=== PATIENT | female | born 1995 | race Caucasian/White ===

== ENCOUNTER 2016-11-11 08:24 | Emergency (ER) | payer OTHER ==
[2016-11-11 09:16] VITALS: BP 123/66; PULSE 77; RESP 14; TEMP 97.9; O2SAT 98
--- NOTE | 2016-11-11 09:20 | UCPHY ---
H & P Time Seen by Provider: 11/11/16 09:12 Patient Type: Established HPI/ROS: This patient reports a sore throat that started last week. The symptoms have increased over the past 24 hours and she reports peak intensity 8/10 achy discomfort in her throat. She has associated odynophagia. She has minimal relief from deax-dfc-adxifmn medications and she wants to rule out strep. She still tolerating p.o. intake. ROS: No high fevers or chills. HEENT: No significant nasal congestion facial pain. She has mild ear discomfort right side. Pulmonary: No cough GI: No vomiting integumentary: No rash. 7 point ROS is otherwise negative. Past Medical/Surgical History: Otherwise healthy Smoking Status: Never smoked Physical Exam: Physical Exam Vital signs are normal. General: No acute distress HEENT: Nose: Clear oropharynx: Mild tonsillar erythema with no exudates. There is minimal swelling. No dysphonia. Ears: External canals and TMs clear bilaterally. Eyes: Pupils equal and react to light. Extraocular motions are intact. Lungs: Clear to auscultation bilaterally. No respiratory distress. Cardiac: Regular rate and rhythm with no murmur gallop or rub Skin: No rash or pallor. Neuro: Alert and oriented x3 with no sensorimotor deficits. Initial differential diagnosis: Viral pharyngitis versus strep pharyngitis Constitutional: Initial Vital Signs Temperature (C) 36.6 C 11/11/16 09:14 Heart Rate 77 11/11/16 09:14 Respiratory Rate 14 11/11/16 09:14 Blood Pressure 123/66 H 11/11/16 09:14 O2 Sat (%) 98 11/11/16 09:14 O2 Delivery Mode Room Air Allergies/Adverse Reactions: acetaminophen [From Vicodin] Allergy (Verified 11/12/16 09:38) hydrocodone bitartrate [From Vicodin] Allergy (Verified 11/12/16 09:38) Home Medications: Medication Instructions Recorded oxyCODONE/APAP 5/325 [Percocet 1 tab PO Q4-6PRN PRN #15 tab 11/12/16 5/325 (RX)] Medical Decision Making ED Course/Re-evaluation: Rapid strep is negative. I counseled the patient regarding viral pharyngitis. Departure - Departure Disposition: Home, Routine, Self-Care Clinical Impression: Viral pharyngitis Instructions: Pharyngitis (ED) Additional Instructions: Diagnosis: Viral pharyngitis Your rapid strep today is negative. Plan: Humidifier Ibuprofen for discomfort as [id number] mg per 6 hours. ex solution in addition as prescribed if needed for throat pain Her symptoms should improve over the next 3-5 days. Return for any significant worsening despite treatment plan [place]errals: [place],. [Primary Care Provider] - As per Instructions Stand Alone Forms: School Excuse - PQRS PQRS Measurement: NA
== END 2016-11-11 09:24 | disposition home or self-care (01) ==
LOC: CED 08:24
DX: J02.9 Acute pharyngitis, unspecified (principal); Z88.6 Allergy status to analgesic agent
CPT/HCPCS: 87880-PO; 99214-PO; G0463-PO

== ENCOUNTER 2016-11-12 09:26 | Emergency (ER) | payer OTHER ==
[2016-11-12 09:38] VITALS: BP 112/79; PULSE 96; RESP 16; TEMP 99; O2SAT 98
--- NOTE | 2016-11-12 09:49 | UCPHY ---
H & P Time Seen by Provider: 11/12/16 09:45 Patient Type: Established HPI/ROS: This patient presents with a chief complaint of a sore throat which began last week but became much worse 2 days ago. She was seen here yesterday and diagnosed with a viral pharyngitis and both the strep screen and DNA testing was negative for strep. She has some soreness in the right side of her neck and experienced some chills last night but does not think she has had a fever. She denies ear pain, nasal congestion cough. She does feel slightly fatigued. She says the throat pain has become worse since she was seen here yesterday. Smoking Status: Never smoked Physical Exam: GENERAL: Well-appearing, well-nourished and in no acute distress. HEAD: Atraumatic, normocephalic. EYES: sclera anicteric, conjunctiva are normal. ENT: TMs normal, nares patent, oropharynx clear without exudates. Moist mucous membranes. The tonsils are fairly large but there is no significant injection and there is no exudate. NECK: Normal range of motion, supple without lymphadenopathy or JVD. There is some tenderness in the upper right neck. LUNGS: Breath sounds clear to auscultation bilaterally and equal. No wheezes rales or rhonchi. HEART: Regular rate and rhythm EXTREMITIES: Normal range of motion, NEUROLOGICAL: Cranial nerves II through XII grossly intact. Normal speech, normal gait. PSYCH: Normal mood, normal affect. SKIN: Warm, dry, normal turgor, no visible rashes or lesions. Constitutional: Initial Vital Signs Temperature (C) 37.2 C 11/12/16 09:36 Heart Rate 96 11/12/16 09:36 Respiratory Rate 16 11/12/16 09:36 Blood Pressure 112/79 11/12/16 09:36 O2 Sat (%) 98 11/12/16 09:36 O2 Delivery Mode Room Air Allergies/Adverse Reactions: acetaminophen [From Vicodin] Allergy (Verified 11/12/16 09:38) hydrocodone bitartrate [From Vicodin] Allergy (Verified 11/12/16 09:38) Home Medications: Medication Instructions Recorded oxyCODONE/APAP 5/325 [Percocet 1 tab PO Q4-6PRN PRN #15 tab 11/12/16 5/325 (RX)] Medical Decision Making Differential Diagnosis: This patient wanted to receive antibiotics however I declined given the objective findings as well as the negative strep testing. I find nothing else that would indicate that antibiotics would be beneficial. Departure - Departure Clinical Impression: Pharyngitis Qualifiers: Pharyngitis/tonsillitis etiology: unspecified etiology Qualifier Code: (J02.9) Acute pharyngitis, unspecified Instructions: Pharyngitis (ED) Additional Instructions: If her symptoms have not resolved in for 5 days you should be re-evaluated. Adult Pain & Fever Control: We recommend Acetaminophen (Tylenol) and Ibuprofen (Motrin, Advil) for pain and fever control. When fever is high or pain severe, both drugs can be used at the same time, but at different intervals. Please note the time differences. Your dose is: Acetaminophen [650]mg every 4 to 6 hours ibuprofen [600]mg every [6] hours with food OR naproxen Sodium (Aleve) [440]mg every 12 hours. Note: do not take Acetaminophen with Hydrocodone (Vicodin, Lortab) or Oxycodone (Percocet). These medications also contain Acetaminophen. No more than 3000 mg of Acetaminophen should be taken in 24 hours (for an adult) . The maximal dose of ibuprofen that it is safe in a 24-hour period is 2400 mg. You may take 400 mg every 4 hours, 600 mg every 6 hours or 800 mg every 8 hours safely. Referrals: [place],. [Primary Care Provider] - As per Instructions Prescriptions: oxyCODONE/APAP 5/325 [Percocet 5/325 (RX)] 1 tab PO Q4-6PRN PRN #15 tab PRN Reason: pain - PQRS PQRS Measurement: Not applicable
== END 2016-11-12 10:00 | disposition home or self-care (01) ==
LOC: CED 09:26
DX: J02.9 Acute pharyngitis, unspecified (principal)
CPT/HCPCS: 99214-PO; G0463-PO